=== PATIENT | male | born 1960 | race African-American/Black ===

== ENCOUNTER 2016-06-29 22:18 | Emergency (ER) | payer MEDICAID, OTHER ==
[~2016-06-29] VITALS: Ht 175.3 cm; Wt 135.1 kg
[2016-06-30] VITALS: BP 140/85
== END 2016-06-30 00:08 | disposition home or self-care (01) ==
LOC: ER 22:18
DX: J02.9 Acute pharyngitis, unspecified (principal); I10 Essential (primary) hypertension; F17.200 Nicotine dependence, unspecified, uncomplicated; F12.10 Cannabis abuse, uncomplicated; Z98.890 Other specified postprocedural states
CPT/HCPCS: 87070; 87430; 99284